=== PATIENT | female | born 1985 | race Caucasian/White ===

== ENCOUNTER 2022-05-03 08:45 | Outpatient (RCR) | payer OTHER, SELFPAY ==
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
[2022-04-23 13:50] VITALS: BP 102/70; PULSE 88; TEMP 37.1
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
[2022-04-23 14:59] LABS: Amphetamine Screen Urine Not Detected (Not Detect); Barbiturates, Urine Not Detected (Not Detect); Benzodiazepines Screen Urine Not Detected (Not Detect); Cannabinoid Screen Urine Not Detected (Not Detect); Cocaine Screen Urine Not Detected (Not Detect); Fentanyl, urine Not Detected (Not Detect); Opiate Screen Urine Not Detected (Not Detect); Phencyclidine Screen Urine Not Detected (Not Detect)
--- NOTE | 2022-04-26 08:43 | PC.NURSE ---
case opened in treatment team
--- NOTE | 2022-05-03 14:55 | PC.NURSE ---
Patient scheduled for routine discharge today. Patient presents with brighter affect and mood. Denied SI or thoughts to harm herself. Denied any safety issues. Plans to go on vacation next week. reviewed patient medications with patient. Patient reports understanding of her medications and taking them as prescribed.
== END 2022-05-03 23:59 | disposition home or self-care (01) ==
LOC: HO.PHPA 08:45
PROVIDERS: Nurse Practitioner Psychiatric/Mental Health; Visit Provider Psychiatry & Neurology Psychiatry
DX: F33.2 Major depressive disorder, recurrent severe without psychotic features (principal); F41.1 Generalized anxiety disorder; F43.12 Post-traumatic stress disorder, chronic; Z91.51 Personal history of suicidal behavior; Z79.899 Other long term (current) drug therapy
CPT/HCPCS: 80307; 90791; 90853